=== PATIENT | male | born 1980 | race Caucasian/White ===

== ENCOUNTER 2021-08-01 08:51 | Inpatient (IN) | payer BC ==
[~2021-08-01] VITALS: Ht 165.1 cm; Wt 72.6 kg
--- NOTE | 2021-08-01 09:00 | NUR ---
Dr Lazo at the bedside for MSE.
[2021-08-01 09:28] LABS: *BILIRUBIN,URIN 2+ (NEGATIVE); *BLOOD, URINE 2+ (NEGATIVE); *CLARITY,URINE SLIGHTLY CLOUDY (CLEAR); *COLOR,URINE DARK YELLOW (YELLOW); *KETONES,URINE 4+ (NEGATIVE); *UROBILINOGEN,URINE 0.2 E.U./dl (NORMAL); LEUKOCYTE ESTERASE ,URINE NEGATIVE (NEGATIVE); NITRITE, URINE NEGATIVE (NEGATIVE); UGLUCOSE NEGATIVE (NEGATIVE)
[2021-08-01 09:30] LABS: HEMATOCRIT 46.3 % (36.7-47.1); MEAN CORPUSCULAR VOLUME 89.4 fL (73.0-96.2); PLATELET COUNT (AUTO) 283 K/uL (152-348)
[2021-08-01] MEDS ORDERED: KETOROLAC TROMETHAMINE 30 MG INJ IVP ONE (09:30)
[2021-08-01] MEDS ORDERED: FAMOTIDINE. 20 MG/2 ML VIAL IV ONE ×2 (09:30→09:39)
[2021-08-01] MEDS ORDERED: ONDANSETRON 4 MG/2 ML VIAL IV ONE ×3 (09:30→11:15)
[2021-08-01] MEDS ORDERED: MORPHINE SULFATE 2 MG/1 ML DISP.SYRIN IV ONE (09:30)
[2021-08-01] MEDS ORDERED: IV NS 1000 ML 1,000 ML IV ONE ×2 (09:30→11:15)
[2021-08-01 09:32] LABS: POTASSIUM 4.3 mmol/L (3.5-5.1)
[2021-08-01] MEDS ORDERED: SWABABLE VALVE TRANSFER SET EA MC ONE (09:34)
[2021-08-01] MEDS ORDERED: IV NORMAL SALINE 250 ML IV ONE (09:34)
[2021-08-01] MEDS ORDERED: IOHEXOL 300MG/ML 100 ML INFUS..BTL ONE (09:34)
[2021-08-01 09:38] LABS: BILIRUBIN,DIRECT 0.2 mg/dL (0.0-0.2); BILIRUBIN,TOTAL 0.8 mg/dL (0.2-1.0); TOTAL PROTEIN, SERUM 8.3 g/dL (6.4-8.2)
[2021-08-01] MEDS ORDERED: MORPHINE SULFATE 2 MG/1 ML DISP.SYRIN ONE (09:39)
[2021-08-01] MEDS ORDERED: ONDANSETRON 4 MG/2 ML VIAL ONE ×3 (09:39→11:20)
--- NOTE | 2021-08-01 11:02 | NUR ---
Placed pt on NPO.
--- NOTE | 2021-08-01 11:20 | NUR ---
Pt requested not to have NG tube, stating feeling nausea but not vomitting. Dr Lazo made aware.
[2021-08-01] MEDS ORDERED: ROSU10TA2 PO (11:39)
[2021-08-01] MEDS ORDERED: ICOS0.5C PO (11:39)
--- NOTE | 2021-08-01 11:57 | NUR ---
Dr Mccoy Paged for admit. Awaiting call back.
--- NOTE | 2021-08-01 12:15 | NUR ---
SUZETTE Wright spoke to dr Mccoy and Dr Barber(surgeon).
--- NOTE | 2021-08-01 12:30 | NUR ---
PATIENT ADMITTED FROM ER VIA WHEELCHAIR ALERT AND ORIENTED X3, DENIES SOB OR ACUTE PAIN, 15L NRM SATURATING 94%. OBSERVED
[2021-08-01] MEDS ORDERED: ACETAMINOPHEN 650 MG SUPP.RECT RC PRN (13:30)
[2021-08-01] MEDS ORDERED: MORPHINE SULFATE 2 MG/1 ML DISP.SYRIN IV PRN (13:30)
[2021-08-01] MEDS ORDERED: ONDANSETRON 4 MG/2 ML VIAL IV PRN (13:30)
[2021-08-01] MEDS ORDERED: DIATR MEGLU/DIATRIZOATE SODIUM 30 ML BOTTLE ONE (13:35)
[2021-08-01] MEDS ORDERED: PIPERACILLIN SODIUM/TAZOBACTAM 3.375 G in IV DEXTROSE 5% 50 ML IV ONE (14:00)
[2021-08-01] MEDS: IV D5 1/2 NS 1000 ML 1,000 ML IV PRN (14:07)
[2021-08-01] MEDS: PANTOPRAZOLE SODIUM 40 MG VIAL IV SCH (14:44)
[2021-08-01 14:59] LABS: BACTERIA,URINE NONE SEEN /HPF (NONE SEEN); SQUAMOUS EPITHELIAL CELL,UR FEW /HPF (NONE SEEN)
[2021-08-01 15:00] LABS: CALCIUM OXALATE CRYSTALS,UR MODERATE /HPF (NONE SEEN); URINE AMORPHOUS URATE FEW /HPF
--- NOTE | 2021-08-01 15:30 | NUR ---
PATIENT SEEN BY DR COOPER TALKED TO PATIENT REGARDING PLAN OF CARE.
[2021-08-01 16:00] VITALS: BP 129/81
--- NOTE | 2021-08-01 17:54 | NUR ---
ngt to low intermittent suction inserted right nares for suction
[2021-08-01 20:05] VITALS: BP 135/83
--- NOTE | 2021-08-01 21:01 | NUR ---
RESULT IF SBO XRAY RELAYED TO DR. TAYLOR, UNDERSIGNED GOT INSTRUCTION FR MD TO INFORM PT AND THAT PARTIAL SMALL BOWEL OBSTRUCTION WAS NOTED, IT IS OK TO REMOVE NGT NOW, KEEP NPO, CONTINUE WITH ANTIBIOTICS AND PAIN MANAGEMENT, THEN TOMORROW AM WILL EVALUATE AND CHECK IF CLEAR LIQUID CAN BE STARTED.ORAL CARE RENDERD.PRIMARY NURSE MADE AWARE OF ABOVE.
[2021-08-01] MEDS: PIPERACILLIN SODIUM/TAZOBACTAM 3.375 G in IV DEXTROSE 5% 100 ML IV SCH (21:27)
--- NOTE | 2021-08-01 21:45 | NUR ---
PATIENT ALERT ORIENTED, NO SOB NO CHEST PAIN, NO COMPLAIN OF PAIN. PATIENT NGT LOW SUCTION WITH SMALL GREENISH COLOR FLUIDS OBTAIN. DR. STEVENSON ORDERED TO D/C NGT, NO FURTHER EPISODE OF VOMITING NOTED, CONT TO MONITOR.
[2021-08-02 04:05] VITALS: BP 104/71
--- NOTE | 2021-08-02 05:51 | NUR ---
PATIENT ALERT ORIENTED, NO SOB NO CHEST PAIN, NO COMPLAIN OF PAIN, NO FURTHER EPISODE OF VOMITING AT THIS TIME, CONTINUE NPO, ON IV FLUIDS CONTINUE. CONT TO MONITOR.
[2021-08-02 06:19] LABS: HEMATOCRIT 39.3 % (36.7-47.1); MEAN CORPUSCULAR HEMOGLOBIN 30.8 uug (23.8-33.4); MEAN CORPUSCULAR VOLUME 89.8 fL (73.0-96.2); PLATELET COUNT (AUTO) 229 K/uL (152-348)
[2021-08-02 06:37] LABS: BILIRUBIN,TOTAL 0.6 mg/dL (0.2-1.0); MAGNESIUM 2.4 mg/dL (1.8-2.4); PHOSPHOROUS 3.5 mg/dL (2.5-4.9); POTASSIUM 3.9 mmol/L (3.5-5.1); TOTAL PROTEIN, SERUM 6.6 g/dL (6.4-8.2)
[2021-08-02] MEDS: PIPERACILLIN SODIUM/TAZOBACTAM 3.375 G in IV DEXTROSE 5% 100 ML IV SCH ×2 (06:58→13:05)
[2021-08-02] MEDS: IV D5 1/2 NS 1000 ML 1,000 ML IV PRN (07:12)
[2021-08-02] MEDS: PANTOPRAZOLE SODIUM 40 MG VIAL IV SCH (08:28)
[2021-08-02 11:49] VITALS: BP 115/75
[2021-08-02 16:00] VITALS: BP 103/71
[2021-08-02] MEDS ORDERED: FAMO-132 PO (18:16)
[2021-08-02] MEDS ORDERED: ACID1TAB4 PO (18:16)
--- NOTE | 2021-08-02 18:34 | NUR ---
dc orders received noted and carried out,dc heplock per md orders,dc instruction and education given to the pt pt said he will follow up with his pcp in one week .pt left the facility via private car in stable condition
== END 2021-08-02 18:36 | disposition home or self-care (01) | DRG 389 ==
LOC: ER 08:51 → MEDSURG3 12:48
PROVIDERS: ADMIT Internal Medicine; ATTEND Internal Medicine
DX: K56.51 Intestinal adhesions [bands], with partial obstruction (principal); A04.9 Bacterial intestinal infection, unspecified; E78.5 Hyperlipidemia, unspecified; Z20.822 Contact with and (suspected) exposure to COVID-19; Z98.890 Other specified postprocedural states; R73.9 Hyperglycemia, unspecified; E66.9 Obesity, unspecified; Z68.26 Body mass index [BMI] 26.0-26.9, adult
CPT/HCPCS: 36415; 70030-TC; 74018; 74250; 83605; 83690; 83735; 84100; 85025; 93005; A4663; C9113; G0378; J2270; J2405; J2543; J3490; J7030; J7040; J7050; J7060; Q9963; Q9967